=== PATIENT | female | born 1940 | race Caucasian/White ===

== ENCOUNTER 2017-07-16 16:42 | Emergency (ER) | payer MEDICARE ==
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
[2017-07-16] MEDS ORDERED: NORMAL SALINE 1,000 ML IV ONE ×2 (16:57→19:06)
[2017-07-16] MEDS ORDERED: HYDROmorphone HCL 1 MG/ML DISP.SYRIN IV ONE ×2 (17:28→19:08)
[2017-07-16] MEDS ORDERED: HYDROmorphone HCL 1 MG/ML DISP.SYRIN ONE (17:29)
[2017-07-16] MEDS ORDERED: LORazepam 2 MG/ML DISP.SYRIN IV ONE (17:29)
[2017-07-16] MEDS ORDERED: LORazepam 2 MG/ML DISP.SYRIN ONE (17:30)
[2017-07-16 18:26] LABS: Hematocrit 38.4 % (37.0-47.0); Hemoglobin 12.4 gm/dL (12.5-16.0); Mean Cell Volume 89.9 fl (78-100); Mean Corpuscular Hgb Conc 32.3 g/dl (32-36); Mean Platelet Volume 9.4 fl (6.0-9.5); Neutrophil % 82.9 % (42-75.0); Platelet Count 274 K/mm3 (150-450); Red Blood Count 4.27 M/mm3 (4.2-5.4); Red Cell Distribution Width 14.7 % (11.5-14.0); White Blood Count 16.9 K/mm3 (4.0-10.5)
[2017-07-16 18:42] LABS: ALT 37 U/L (19-67); AST 41 U/L (0-48); Albumin * 3.2 gm/dl (3.4-5.0); Alkaline Phosphatase * 94 U/L (50-170); Amylase * 32 U/L (25-115); Anion Gap 12.4 mmol/L (6.8-13.8); BUN/Creatinine Ratio 29.4 (9.0-21.6); Bilirubin, Total 0.3 mg/dL (0.0-1.1); Blood Urea Nitrogen 30 mg/dL (3-23); Ca. Corrected For Albumin 8.8 mg/dL (8.4-10.2); Calcium * 8.5 mg/dL (7.9-10.9); Carbon Dioxide 25.2 mmol/L (24-32.6); Chloride 105 mmol/L (97-106); Glucose * 144 mg/dL (70-110); Potassium 3.6 mmol/L (3.4-4.6); Sodium 139 mmol/L (132-142)
[2017-07-16] MEDS ORDERED: ONDANSETRON HCL/PF 2 MG/ML VIAL IV ONE (19:10)
[2017-07-16] MEDS ORDERED: HYDROmorphone HCL 2 MG/ML VIAL ONE (19:13)
[2017-07-16] MEDS ORDERED: ONDANSETRON HCL/PF 2 MG/ML VIAL ONE (19:14)
[2017-07-16 20:31] VITALS: BP 163/70
[2017-07-16 20:41] LABS: Urine Bilirubin Negative (NEGATIVE); Urine Blood 25 /ul (NEGATIVE); Urine Ketone Negative (NEGATIVE); Urine Nitrite Negative (NEGATIVE); Urine Protein Negative (NEGATIVE); Urine Urobilinogen Normal (NORMAL)
[2017-07-16 20:55] LABS: Cocaine Ur Negative (NEGATIVE); Urine Barbiturate Negative (NEGATIVE); Urine Benzodiazepines Negative (NEGATIVE); Urine PCP Negative (NEGATIVE); Urine THC Negative (NEGATIVE)
[2017-07-16 20:57] LABS: Urine Amorphous Sediment Moderate - 2+ (NONE-FEW); Urine Appearance Clear; Urine Bacteria TRACE; Urine Color Yellow; Urine RBC None Seen /hpf (0-5); Urine WBC None Seen /hpf (0-5)
[2017-07-16 20:59] LABS: Urine Opiates Positive (NEGATIVE)
== END 2017-07-16 20:15 | disposition short-term general hospital (02) ==
LOC: MERGE 16:42 → ER 16:42
PROC: 0T9B70Z Drainage of Bladder with Drainage Device, Via Natural or Artificial Opening (ICD-10-PCS; principal; 2017-07-16)
DX: C34.90 Malignant neoplasm of unspecified part of unspecified bronchus or lung (principal); C79.9 Secondary malignant neoplasm of unspecified site; S12.130A Unspecified traumatic displaced spondylolisthesis of second cervical vertebra, initial encounter for closed fracture; S22.41XA Multiple fractures of ribs, right side, initial encounter for closed fracture; S27.322A Contusion of lung, bilateral, initial encounter; S22.081A Stable burst fracture of T11-T12 vertebra, initial encounter for closed fracture; V49.3XXA Car occupant (driver) (passenger) injured in unspecified nontraffic accident, initial encounter; W22.10XA Striking against or struck by unspecified automobile airbag, initial encounter; Y92.410 Unspecified street and highway as the place of occurrence of the external cause
CPT/HCPCS: 36415; 51702; 70450; 71010; 72125; 72128; 74177; 80053; 80307; 81001; 82150; 85025; 86850; 86900; 96374; 96375; 99291; G0481; J2405